=== PATIENT | male | born 1985 | race African-American/Black ===

== ENCOUNTER 2019-03-26 06:35 | Emergency (ER) | payer OTHER ==
[2019-03-26 06:52] VITALS: BP 110/70; PULSE 73; TEMP 98.3; BMI 23.7
--- NOTE | 2019-03-26 07:32 | PDOC ---
History of Present Illness - General Chief Complaint: Injury Stated Complaint: INTOX/FALL Time Seen by Provider: 03/26/19 07:19 - History of Present Illness Initial Comments: 03/26/19 07:59 The patient is a 44 year old male with a reported history of ETOH abuse who presents for evaluation of intoxication and unwitnessed fall. Per triage, the patient initially reported falling with lower back pain as well as endorsing ETOH use. On evaluation in the ED, history is limited due to the patient's intoxication. He denies drinking ETOH and reports lower back pain. Oriented x3 on exam but refusing to provide additional history. ROS is limited due to the patient's intoxication. Past History - Past Medical History Allergies/Adverse Reactions: Allergies Allergy/AdvReac Type Severity Reaction Status Date / Time No Known Allergies Allergy Verified 03/26/19 06:52 Home Medications: Ambulatory Orders NK [No Known Home Medication] 03/26/19 - Psycho Social/Smoking Cessation Hx Smoking History: Unknown if ever smoked Hx Alcohol Use: No Drug/Substance Use Hx: No Review of Systems - Review of Systems Able to Perform ROS?: No (Intoxication) *Physical Exam - Vital Signs Last Vital Signs Temp Pulse Resp BP Pulse Ox 98.3 F 73 17 110/70 96 03/26/19 06:48 03/26/19 06:48 03/26/19 06:48 03/26/19 06:48 03/26/19 06:48 - Physical Exam 03/26/19 08:02 General Appearance: Nourished. Alcohol on breath. No Apparent Distress HEENT: EOMI, GILLES. Atraumatic, No Pharyngeal Erythema, Tonsillar Exudate, Tonsillar Erythema Neck: No Cervical Lymphadenopathy Respiratory/Chest: Lungs Clear, Normal Breath Sounds. No Crackles, Rales, Rhonchi, Wheezing Cardiovascular: Regular Rhythm, Regular Rate. No Murmur, Gallops, Rubs Gastrointestinal/Abdominal: Normal Bowel Sounds, Soft. No Guarding, Rebound, Tenderness Musculoskeletal: No CVA Tenderness Extremity: Normal Capillary Refill Integumentary: Normal Color, Dry, Warm Neurologic: Fully Oriented, Alert, Normal Mood/Affect, Normal Response, Heart Score/ECG Review #1 ECG reviewed & interpreted by me at: 08:33 03/26/19 08:33 HR 67 IA 190 QRS 86 QTc 405 Normal Sinus Rhythm No acute ST Changes ED Treatment Course - LABORATORY CBC & Chemistry Diagram: 03/26/19 08:39 03/26/19 08:39 Medical Decision Making - Medical Decision Making 03/26/19 08:03 The patient is a 44 year old male with a reported history of ETOH abuse who presents for evaluation of intoxication and unwitnessed fall. Given the patient 's history and physical exam, we will obtain a cbc, cmp, etoh, level, urine drug screen, head ct, lumbar plain films to evaluate further. We will continue to monitor and reassess while here in the ED. 03/26/19 10:12 CBC, cmp were unremarkable. ETOH level was 100. head CT did not demonstrate any acute pathology as read by our radiologist. The patient was more alert on re -evaluation and refusing further work up or monitoring and requesting to leave AMA. The patient is alert and oriented x3 and ambulating with a steady gait. I believe this patient is of sound mind and competent to refuse medical care. The patient is responding and asking questions appropriately. The patient is oriented to person, place and time. The patient is not psychotic, delusional, suicidal, homicidal or hallucinating. The patient demonstrates a normal mental capacity to make decisions regarding their healthcare. The patient is clinically sober and does not appear to be under the influence of any illicit drugs at this time. The patient has been advised of the risks, in layman terms, of leaving AMA which include, but are not limited to cardiac arrest, severe infection, dehydration, myocardial infarction, arrhythmia, stroke, respiratory failure, , coma, permanent disability, loss of current lifestyle, delay in diagnosis. Alternatives have been offered - the patient remains steadfast in their wish to leave. The patient has been advised that should they change their mind they are welcome to return to this hospital, or any other, at any time. The patient understands that in no way does an AMA discharge mean that I do not want them to have the best medical care available. To this end, I have provided appropriate prescriptions, referrals, and discharge instructions. Pt will follow up with primary care doctor with reevaluation. Return precautions advised , call 911 immediately if severe life threatening symptoms or concerns.. Pt has verbalized understanding of information provided, questions answered. The patient did sign AMA paperwork. Discharge - Discharge Information Problems reviewed: Yes Clinical Impression/Diagnosis: Intoxication Condition: Stable Disposition: AGAINST MEDICAL ADVICE - Follow up/Referral Referrals: Tracy Gil MD [Primary Care Provider] - - Patient Discharge Instructions Patient Printed Discharge Instructions: DI for Alcohol Abuse Additional Instructions: 1) Please follow-up with your primary care doctor in the next 2-3 days. Please call tomorrow to schedule a follow up appointment. If you cannot follow up with your doctor within 1 week please return to the Emergency Department for any urgent issues. 2) Your laboratory / imaging results were normal here in the ER however your work up is not complete. 3) If you have any worsening of symptoms or any other concerns, please return to the ER immediately. Return if worsening symptoms including fevers, headache, vomiting, visual or hearing disturbances, abdominal pain, chest pain, shortness of breath, syncope, dehydration, inability to take things by mouth/vomiting, altered mental status, or worsening concerning symptoms. 4) Please continue taking your home medications as directed. Side effects may include upset stomach, abdominal pain, vomiting, or diarrhea. Do not drink alcohol with your medications. - Post Discharge Activity
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
[2019-03-26] MEDS ORDERED: FOLIC ACID INJECTION - 1 MG, THIAMINE HCL 100 MG, MULTIVIT INJECTION ADULT 10 ML in SOD... IVPB ONE (08:04)
[2019-03-26 09:09] LABS: BASO % 0.4 % (0-2.0); EOS % 1.2 % (0-4.5); HEMATOCRIT 40.7 % (35.4-49); HEMOGLOBIN 13.4 GM/dL (11.7-16.9); LYMPH % 61.6 % (8-40); MCH 27.8 pg (25.7-33.7); MCHC 32.8 g/dl (32.0-35.9); MEAN CELL VOLUME 84.6 fl (80-96); MEAN PLT VOLUME 8.7 fl (7.5-11.1); MONO % 9.1 % (3.8-10.2); NEUT % 27.7 % (42.8-82.8); PLATELET COUNT 229 K/MM3 (134-434); RBC 4.81 M/mm3 (4.00-5.60); RDW 14.5 % (11.9-15.9); WHITE BLOOD COUNT 4.3 K/mm3 (4.0-10.0)
[2019-03-26 09:11] LABS: ALBUMIN 3.7 g/dl (3.4-5.0); BILIRUBIN,TOTAL 0.9 mg/dL (0.2-1); BLOOD UREA NITROGEN 11.8 mg/dL (7-18); CREATININE 0.7 mg/dL (0.55-1.3); POTASSIUM 4.5 mmol/L (3.5-5.1); TOT PROT 7.4 g/dl (6.4-8.2)
[2019-03-26 11:39] LABS: ANISOCYTOSIS 0; MACROCYTOSIS 0; PLATELET ESTIMATE NORMAL
--- NOTE | 2019-03-27 09:44 | EKG ---
Test Reason : Blood Pressure : / mmHG Vent. Rate : 067 BPM Atrial Rate : 067 BPM P-R Int : 190 ms QRS Dur : 086 ms QT Int : 384 ms P-R-T Axes : 074 080 063 degrees QTc Int : 405 ms NORMAL SINUS RHYTHM NONSPECIFIC ST AND T WAVE ABNORMALITY ABNORMAL ECG NO PREVIOUS ECGS AVAILABLE Confirmed by JULIO MOORE, MONA ([id number]) on 03/27/2019 9:44:42 AM Referred By: Confirmed By:MONA KIM MD
== END 2019-03-26 10:20 | disposition left against medical advice (07) ==
LOC: EDBD 06:35 → JER 06:35
DX: F10.120 Alcohol abuse with intoxication, uncomplicated (principal); Y90.5 Blood alcohol level of 100-119 mg/100 ml; W19.XXXA Unspecified fall, initial encounter; Y93.89 Activity, other specified; Y92.89 Other specified places as the place of occurrence of the external cause; Y99.8 Other external cause status
CPT/HCPCS: 36415; 70450-TC; 80053; 80307; 85025; 93005; 93010; 99284-25; J7030